=== PATIENT | female | born 1950 | race Caucasian/White ===

== ENCOUNTER → 2023-07-16 12:53 | Outpatient (REF) | payer OTHER, SELFPAY | LOC: HWRAD 12:53 | PROVIDERS: ATTENDING PHYSICIAN Family Medicine | DX: Z12.31 Encounter for screening mammogram for malignant neoplasm of breast (principal); Z78.0 Asymptomatic menopausal state | CPT/HCPCS: 77063; 77067; 77080 ==

== ENCOUNTER 2023-11-25 09:14 | Emergency (ER) | payer OTHER, SELFPAY ==
[2023-11-25 09:24] VITALS: BP 124/57
[2023-11-25 10:31] VITALS: BP 112/65
--- NOTE | 2023-11-25 10:37 | ED.GENMED ---
History of Present Illness
General
Chief Complaint: Urinary Symptoms
Source: patient
Time Seen by Provider: 11/25/23 10:24
History of Present Illness
History of Present Illness:
73-year-old female with past medical history of hyperlipidemia and GERD presenting to the emergency department for evaluation after she started feeling unwell this past Saturday, had been started on Macrobid for urinary tract infection same day and
also had her flu shot that day. Since that time patient reports generalized body ache, headache, joint pain, bilateral back/flank pain, lightheadedness, blurred vision, nausea, dry heaving but no vomiting, diminished p.o. intake. Patient notes no
sick contacts or recent travel. She reports good compliance with the Macrobid she was prescribed. Patient presently denying any abdominal pain and is also denying any urinary frequency/urgency/dysuria. Did not take any medications prior to
arrival. No other concerns.
Past History
Past History
ED Past Medical History: Hypercholesterolemia and Other (cataracts)
ED Past Surgical History: None
Social History
Tobacco: Non-smoker
Alcohol: None
Drug: None
Personal:
Living: with family
Review of Systems
Review of Systems
All Other Systems: ROS reviewed and negative except as documented in HPI and ROS
Phy Exam
Physical Exam
Physical Exam:
GENERAL: Alert , in no apparent distress
HEAD: NCAT
EYE: clear conjunctiva
NECK: Supple
ENT: o/p clr, mmm.
CARDIAC: Regular rate and rhythm .
LUNGS: Clear breath sounds bilaterally, no acute respiratory distress, no wheezes/rales/rhonchi
ABDOMEN: Soft, without focal tenderness, no r/g, no cvat
NEUROLOGICAL: Alert and oriented
SKIN: Warm and dry, skin intact.
MUSCULOSKELETAL: well perfused.
PSYCH: Normal and appropriate interaction.
Scores
Heart Failure Risk
Heart Failure Risk Score: Not Applicable
Heart Score for Chest Pain Patients
STEMI patient?: Not applicable
Withdrawal Assessment of Alcohol
Withdrawal Assessment Completed?: Not applicable
Course
Orders/Labs/Results
Orders:
Orders
11/25/23 10:36
0.9% Sodium Chloride 1000 ml [Nss] 1,000 ml IV BOLUS
Ketorolac [Toradol] 30 mg IV NOW STA
Ondansetron Injectable [Zofran] 4 mg IV NOW STA
11/25/23 10:42
COVID-19 Antigen Urgent
Source: Nasal Swab
Complete Blood Count/With Diff Urgent
Comprehensive Metabolic Panel Urgent
Urinalysis Reflex To Culture Urgent
Date Specimen was Collected: 11/25/23
Time Specimen was Collected: 10:39
Urine Microscopic Reflex Cult Urgent
Abnormal Lab Results
11/25/23
10:42
Abs Immat Gran (auto) 0.1 H 10^3/uL
(0-0.05)
Absolute Neuts (auto) 7.9 H 10^3/uL
(1.4-6.5)
Absolute Lymphs (auto) 0.9 L 10^3/uL
(1.2-3.4)
Immature Gran % 0.6 H %
(0-0.5)
Neutrophils % 78.7 H %
(42.2-75.2)
Lymphocytes % 8.5 L %
(20.5-51.1)
Glucose 129 H mg/dl
(70-99)
Ur Occult Blood Reflex 1+ A
(Negative)
11/25/23 10:42
11/25/23 10:42
Vital Signs
Initial and Last Documented VS:
Initial Vital Signs
Temp Pulse Resp BP Pulse Ox
99.3 F 89 16 124/57 98
11/25/23 09:24 11/25/23 09:24 11/25/23 09:24 11/25/23 09:24 11/25/23 09:24
Last Documented Vital Signs
Temp Pulse Resp BP Pulse Ox
99.3 F 73 16 105/69 95
11/25/23 09:24 11/25/23 12:00 11/25/23 12:00 11/25/23 12:00 11/25/23 12:00
MDM/Problems Addressed
Differential Diagnosis Includes:
viral syndrome, covid/flu, UTI/pyelonephritis, dehydration
MDM/Problems Addressed:
73-year-old female presenting to the emergency department for evaluation of multitude of symptoms that have been ongoing since Saturday, diagnosed with urinary tract infection and started on antibiotics that day, also received flu vaccine that day.
Given the duration of time that is passed I am less suspicious for vaccine mediated reaction/side effects. Also given the multitude of symptoms patient is experiencing them less concern for pyelonephritis but given the UTI diagnosis I suspect it
is possible. Patient is otherwise well-appearing, no acute distress and hemodynamically stable. Will check labs. Will treat with fluids, Zofran and Toradol. Kashif is manage try to take down there was close
*Pulse Oximetry
Patient hypoxic: no
*Critical Care Note
Total Time (30-74mins, 75-104mins- exclusive of procedures): Not Applicable
Patient Management
Escalation/DeEscalation of care consider admission/obs:
Patient's workup is unremarkable for any acute pathologies. She is feeling better and feels comfortable going home. Aware of return precautions to the ER. Stable for discharge home.
ED Attending Note
-
Portions of this chart may have been created with voice recognition software.� Occasional wrong word or��sound alike� substitutions may have occurred due to the inherent limitations of voice recognition software.
Discharge Plan
Departure
Patient Disposition: Home (Routine Discharge)
Date of Disposition: 11/25/23
Time of Disposition: 11:51
Patient with high blood pressure during this ER visit?: No
Discharge Problem:
Body aches, Nausea
Instructions: Nausea and Vomiting, Adult ED
Prescriptions:
New
ondansetron 4 mg tablet,disintegrating
4 mg PO TIDPRN PRN (Reason: nausea/vomiting) Qty: 8 0RF
No Action
simvastatin 40 MG tablet
40 mg PO DAILY
cephalexin 500 MG capsule
500 mg PO BID Qty: 13 0RF
Referrals:
Aneta Jones MD [Family Provider] -
Interventions
Interventions:
*Risk Screen - Suicide Last Done: 11/25/23 09:24
*General Assessment Last Done: 11/25/23 10:28
*Neglect/Abuse Screening Last Done: 11/25/23 09:24
ED- Fall Risk Assessment Last Done: 11/25/23 12:00
*ED COVID-19 Vaccine History Last Done: 11/25/23 10:28
*Nursing Disposition Last Done: 11/25/23 12:00
ED-Female Genitourinary Assessment Last Done: 11/25/23 10:29
Discharge Date and Time
Discharge Date/Time: 11/25/23 12:02
Print Language: [facility]
[2023-11-25] MEDS: ZOFRAN 4 MG IV (10:45)
[2023-11-25] MEDS: NSS 1000 IV (10:45)
[2023-11-25] MEDS: TORADOL 30 MG IV (10:45)
[2023-11-25 10:55] LABS: % Basophils 0.5 % (0-2); % Eosinophils 5.9 % (0-6); % Immature Granulocytes 0.6 % (0-0.5); % Lymphocytes 8.5 % (20.5-51.1); % Monocytes 5.8 % (1.7-9.3); % Neutrophils 78.7 % (42.2-75.2); Absolute Basophils 0.1 10^3/uL (0-0.2); Absolute Eosinophils 0.6 10^3/uL (0-0.7); Absolute Immature Granulocytes 0.1 10^3/uL (0-0.05); Absolute Lymphocytes 0.9 10^3/uL (1.2-3.4); Absolute Monocytes 0.6 10^3/uL (0.1-0.6); Absolute Neutrophils 7.9 10^3/uL (1.4-6.5); Hematocrit 40.8 % (37.0-47.0); Hemoglobin 13.7 g/dL (12.0-16.0); Mean Corp Hgb Conc. 33.6 g/dL (33.0-37.0); Mean Corpuscular Hgb 29.2 pg (27.0-31.0); Mean Platelet Volume 10.1 fL (7.4-10.4); Nucleated Red Blood Cells % 0 %; Platelet Count 260 10^3/uL (130-400); Red Blood Cell Count 4.69 10^6/uL (4.20-5.40); Red Cell Dist. Width 13.6 % (11.5-14.5); Urine Albumin Trace (Neg - Trace); Urine Bilirubin Negative (Negative); Urine Character Clear (Clear); Urine Color Yellow; Urine Glucose Negative (Negative); Urine Ketone Negative (Negative); Urine Leukocyte Negative (Negative); Urine Nitrite Negative (Negative); Urine Occult Blood 1+ (Negative); Urine Specific Gravity 1.015 (<1.030); Urine Urobilinogen Negative (Neg - 1+); White Blood Cell Count 10.1 10^3/uL (4.8-10.8)
[2023-11-25 11:19] LABS: COVID-19 Antigen Negative (Negative)
[2023-11-25 11:34] LABS: Urine Amorphous Seen; Urine Hyaline Cast 0-2 /LPF (0-2); Urine Mucus Many; Urine Squamous Cell >30 /LPF (Few)
[2023-11-25 11:38] LABS: Urine Red Blood Cell 0-2 /HPF (0-2); Urine White Cell 0-2 /HPF (0-5)
[2023-11-25 11:41] LABS: ALT (SGPT) 25 U/L (0-35); AST (SGOT) 24 U/L (14-36); Albumin 3.9 g/dl (3.5-5.0); Alkaline Phosphatase 71 U/L (38-126); Blood Urea Nitrogen 13 mg/dl (7-17); Calcium 9.7 mg/dl (8.4-10.2); Carbon Dioxide 26 mmol/L (22-30); Chloride 100 mmol/L (98-107); Glucose 129 mg/dl (70-99); Sodium 138 mmol/L (135-145); Total Bilirubin 0.8 mg/dl (0.2-1.3); Total Protein 6.6 g/dl (6.3-8.2); eGFR > 60.00
[2023-11-25 12:00] VITALS: BP 105/69
== END 2023-11-25 12:02 | disposition home or self-care (01) ==
LOC: EMR 09:14
PROVIDERS: Physician Assistant Medical; EMERGENCY PHYSICIAN Emergency Medicine; FAMILY PHYSICIAN Family Medicine
DX: N39.0 Urinary tract infection, site not specified (principal); E78.00 Pure hypercholesterolemia, unspecified; K21.9 Gastro-esophageal reflux disease without esophagitis
CPT/HCPCS: 99283; 96374; 96375; 96361; 80053; 81003; 81015; 85025; 87811

== ENCOUNTER → 2024-04-25 10:04 | Outpatient (REF) | payer MEDICARE, SELFPAY | LOC: MRI 3T 10:04 | PROVIDERS: ATTENDING PHYSICIAN Student in an Organized Health Care Education/Training Program; FAMILY PHYSICIAN Family Medicine | DX: M25.531 Pain in right wrist (principal) | CPT/HCPCS: 73221 ==

== ENCOUNTER → 2024-10-08 15:38 | Outpatient (REF) | payer MEDICARE, SELFPAY ==
[2024-10-08 16:15] LABS: Hematocrit 40.4 % (37.0-47.0); Hemoglobin 13.2 g/dL (12.0-16.0); Mean Corp Hgb Conc. 32.7 g/dL (33.0-37.0); Mean Corpuscular Volume 89.4 fL (81.0-99.0); Nucleated Red Blood Cells % 0 %; Platelet Count 277 10^3/uL (130-400); Red Cell Dist. Width 13.2 % (11.5-14.5)
[2024-10-08 16:35] LABS: Blood Urea Nitrogen 19 mg/dl (7-17); Calcium 9.9 mg/dl (8.4-10.2); Carbon Dioxide 26 mmol/L (22-30); Chloride 105 mmol/L (98-107); Glucose 96 mg/dl (70-99); Potassium 4.2 mmol/L (3.5-5.1); Sodium 139 mmol/L (135-145); eGFR > 60.00
== END ==
LOC: RCS 15:38
PROVIDERS: ATTENDING PHYSICIAN Orthopaedic Surgery Hand Surgery; FAMILY PHYSICIAN Internal Medicine
DX: Z01.818 Encounter for other preprocedural examination (principal)
CPT/HCPCS: 36415; 80048; 85025; 93005